=== PATIENT | female | born 1940 | race Caucasian/White ===

== ENCOUNTER 2018-04-25 06:18 | Inpatient (IN) | payer BC ==
[2018-04-11 09:13] LABS: ABSOLUTE EOSINOPHILS 0.3 thou/uL (0.0-0.7); ABSOLUTE LYMPHOCYTES 2.3 thou/uL (0.8-5.3); ABSOLUTE MONOCYTES 0.5 thou/uL (0.0-1.2); BASOPHILS 0.3 %; EOSINOPHILS 4.7 %; HEMATOCRIT 38.9 % (37.0-47.0); HEMOGLOBIN 12.9 gm/dL (12.0-15.0); LYMPHOCYTES 37.9 %; MCHC 33.1 g/dL (28.0-37.0); MCV 87.5 fL (80.0-100.0); MONOCYTES 7.8 %; MPV 7.4 fl. (7.2-11.1); NUCLEATED RBCS 0 /100WBC; PLATELET COUNT* 206 thou/uL (150-400); POLYS 49.3 %; RBC 4.44 mil/uL (4.20-5.00); RDW-CV 13.8 % (10.5-14.5); WBC 6.1 thou/uL (4.0-11.0)
[2018-04-11 09:36] LABS: ALBUMIN 3.4 g/dL (3.4-5.0); CALCIUM 8.8 mg/dL (8.5-10.1); POTASSIUM 4.2 mmol/L (3.5-5.1); TOTAL BILIRUBIN 0.4 mg/dL (<0.1-1.0)
[2018-04-11 09:59] LABS: APTT 29.3 Seconds (25.0-31.3); INR 1.1; PROTIME 10.4 Seconds (9.20-11.50)
[2018-04-11 10:11] LABS: ESR (SEDRATE) 13 mm/hr (0-30)
--- NOTE | 2018-04-11 11:33 | EKG ---
[place] [address] ELECTROCARDIOGRAM REPORT Name: SANGITA CORLEY Room: PRE IN [facility]#: [id number] Admission: Attend Phys: Gloria Awad Discharge: Date of : 44 Report #: [id number] THIS REPORT FOR: //name// [facility] Test Date: 2018-04-11 Test Time: 09:20:38 Pat Name: SANGITA CORLEY Department: Room: Gender: F Director Of Public Works: : 1940 Requested By: Nakul Hogan Order Number: [id number] Reading MD: Epi Brizuela Measurements Intervals [place] Rate: 60 P: 75 VA: 162 QRS: 18 QRSD: 94 T: 26 QT: 389 QTc: 389 Interpretive Statements Sinus rhythm Abnormal R-wave progression, early transition Compared to ECG 12/11/2016 12:42:25 T-wave abnormality no longer present Electronically Signed On 04-11-2018 11:33:01 CDT by Epi Brizuela [email or web address] <ELECTRONICALLY SIGNED> By: Epi Brizuela MD, [facility] 04/11/18 1133 9 9 Epi Brizuela MD, [facility] /EPI
[~2018-04-25] VITALS: Ht 170.2 cm; Wt 63.5 kg
[~2018-04-25 06:18] MED LIST: ALPRAZOLAM 0.0.25 M1; ASPIRIN EC81 M1 PO; HYDROCODONE-AP1 EAC6 PO; LEVOTHYROXIN0.075 MG PO; MACROBID 100 M100 M2 PO; NEURONTIN 300M300 M2 PO; NEURONTIN600 MG PO; NORTRIPTYLINE H25 M3 PO; OXYCODONE HCL 55 MG PO; PROPRANOLOL 1010 MG PO; ROSE HIPS PO; SYNTHROID88 MCG; TRAMADOL 50 MG50 MG PO; VITAMIN B-12100 MC1; VITAMINC500 PO; XANAX 0.5 MG0.5 MG PO; XARELTO10 MG PO; ZESTORETIC 10-1 EACH PO; [UNRECOGNIZED DRUG - REMARK]
[2018-04-25 07:34] VITALS: BP 135/69
[2018-04-25 13:30] VITALS: BP 143/63
[2018-04-25 16:00] VITALS: BP 140/52
--- NOTE | 2018-04-25 17:26 | NUR ---
PATIENT ARRIVED FROM SURGERY THIS AFTERNOON. PATIENT HAD COMPLAINTS OF PAIN UPON ARRIVAL, HYDROCODONE GIVEN WITH ADEQUATE RELIEF. PATIENT HAS GOOD APPETITE THIS EVENING. PATIENT HAS NOT BEEN UP OUT OF BED TODAY. PATIENT HAS HEMOVAC IN PLACE WITH MINIMAL OUTPUT. PATIENT HAS ABDUCTOR IN PLACE. PATIENT DENIES ANY NEEDS AT THIS TIME. CALL LIGHT WITHIN REACH. WILL CONTINUE TO MONITOR.
[2018-04-25 19:40] VITALS: BP 116/56
[2018-04-25 23:44] VITALS: BP 104/58
[2018-04-26] VITALS (8 sets, daily range): BP systolic 92–122; BP diastolic 47–70
--- NOTE | 2018-04-26 04:39 | NUR ---
PATIENT HAS REMAINED ALERT AND ORIENTED X 4 THROUGHOUT THE SHIFT AND RESTING QUIETLY ON HOURLY ROUNDS. BEDREST TONIGHT. HIP PRECAUTIONS IN PLACE. TURNING WITH ASSIST FOR BEDPAN WITH ADEQUATE VOIDS. ORAL FLUIDS WITHOUT NAUSEA. PAIN WELL CONTROLLED WITH ORAL MEDICATION X 2 THIS SHIFT. DRESSING AND DRAIN RIGHT LEG/THIGH/HIP CLEAN AND DRY. O2 AT 2L/MIN OVERNIGHT WITH CONTINUOUS CAPNOGRAPHY. VITAL SIGNS STABLE. CONTINUE TO MONITOR.
[2018-04-26 04:43] LABS: HEMATOCRIT 34.3 % (37.0-47.0); HEMOGLOBIN 11.3 gm/dL (12.0-15.0)
--- NOTE | 2018-04-26 15:08 | NUR ---
MET WITH PT TO DISCUSS HOME SITUATION DC PLANNING. PT LIVES WITH SPOUSE, HE WAS IN ROOM ALSO. PT HAS BEEN INDPEPENDENT AT HOME. HAD KNEE REPLACEMENT LAST YEAR AND HAS WALKER, SHOWER BENCH AND TOILET RISER. SPOUSE CAN ASSIST HER AT HOME. THEY ARE ALSO HAVING A RAMP BUILT. PER MARY, PT DID WELL TODAY, ANTICIPATE DC TOMORROW. PT HAD [facility] IN PAST, WOULD LIKE TO USE AGAIN. CALLED AND FAXED INITIAL REFERRAL TO [facility]. PT USES [facility] FOR [facility]. CM TO FOLLOW [facility] [phone] FAX [phone]
--- NOTE | 2018-04-26 18:48 | NUR ---
PATIENT HAS BEEN A/O X 4 THIS SHIFT. MEDICATED FOR RIGHT HIP PAIN WITH ORAL PAIN MEDS WITH PARTIAL RELIEF. IV FLUIDS SALINE LOCKED THIS SHIFT. PATIENT MAINTAINING 50% WB STATUS TO RIGHT HIP. DRESSING INTACT TO RIGHT HIP, HEMOVAC DRAIN REMOVED BY ORTHO RESIDENT. UP IN CHAIR FOR MOST OF SHIFT WITH LEGS/HEELS ELEVATED. ABDUCTOR WEDGE IN PLACE TO MAINTAIN HIP PRECAUTIONS. TOLERATING DIET AND ORAL FLUIDS. HOURLY ROUNDING COMPLETED. CALL LIGHT WITHIN REACH. WILL CONTINUE WITH PLAN OF CARE.
[2018-04-27 04:15] VITALS: BP 94/40
[2018-04-27 04:39] LABS: HEMATOCRIT 31.2 % (37.0-47.0); HEMOGLOBIN 10.4 gm/dL (12.0-15.0)
--- NOTE | 2018-04-27 06:02 | NUR ---
PT SLEPT MOST OF SHIFT. ASSESSMENT DOCUMENTED. MEDS GIVEN PER E-MAR. IV PATENT. PAIN MEDS GIVEN PER E-MAR WITH RELIEF. PT UP TO BSC THROUGH NIGHT. WILL CONTINUE WITH PLAN OF CARE.
[2018-04-27 06:44] VITALS: BP 110/49
[2018-04-27] MEDS ORDERED: HYDROCODON-ACE1 EAC7 PO (09:03)
[2018-04-27] MEDS ORDERED: OXYCODONE HCL5 M1 PO (09:03)
[2018-04-27] MEDS ORDERED: ELIQUIS5 MG PO (09:03)
--- NOTE | 2018-04-27 10:32 | NUR ---
Pt to dc home today with and HH services to follow. ROSALIA faxed final orders and med list to [facility] and Kristine accepted referral and will receive fax. Pt has walker already. No other dc needs expressed.
[2018-04-27 15:25] VITALS: BP 116/51
[2018-04-27 16:00] VITALS: BP 130/78
[2018-04-27 16:01] VITALS: BP 116/51
--- NOTE | 2018-04-27 17:30 | NUR ---
PATIENT DISCHARGED FROM UNIT AT 1715. ALERT AND ORIENTED X 4. VITAL SIGNS STABLE ON ROOM AIR. AFEBRILE. UP WITH ASSIST OF ONE TO THE BEDSIDE COMODE. TOLERATED PT WELL TODAY AND DID THE STAIRS. IV DISCONTINUED. DISCHARGE INSTRUCTIONS, MEDICATION INFORMATION, AND SCRIPTS GIVEN TO PATIENT. LEFT WITH ALL BELONGINGS. PATIENT LEFT WITH VIA CAR.
[2018-04-27 18:15] VITALS: BP 116/51
--- NOTE | 2018-07-03 08:08 | OP ---
[facility] [address] [place] [address] OPERATIVE REPORT Name: BARNEYSANGITA Padilla Room: [address]#: [id number] Admission: 04/25/18 Attend Phys: Gloria Awad Discharge: 04/27/18 Date of : 44 Report #: [id number] THIS REPORT FOR: //name// CC: Nakul Darby DICTATED BY: Steven Vidal DO DATE OF SERVICE: 04/25/2018 PREOPERATIVE DIAGNOSIS: Right hip degenerative joint disease. POSTOPERATIVE DIAGNOSIS: Right hip degenerative joint disease. PROCEDURE: Right total hip arthroplasty utilizing the following components: 1. MicroPort Prime Biofoam acetabular shell 54 mm diameter. 2. MicroPort 36 mm lipped acetabular polyethylene liner. 3. Size 1 varus MicroPort Profemur femoral stem. 4. MicroPort BIOLOX 36 mm femoral head with a medium neck length. 5. Two 6.5 x 35 mm cancellous bone screws for the acetabular shell. SURGEON: Nakul Hogan DO. ARTIST WOODBLOCK: Steven Vidal DO and ESTIMATED BLOOD LOSS: 250 mL. ANESTHESIA: General. ANTIBIOTICS: 2 grams Ancef IV preoperatively. DRAINS: Medium Hemovac to right hip subcutaneous tissues. SPECIMENS: None. COMPLICATIONS: None. DISPOSITION: Stable to PACU and will be admitted to the hospital for standard postoperative care. INDICATION FOR PROCEDURE: The patient is a pleasant 78-year-old female who is seen in Orthopedic Clinic with complaints of chronic right hip pain referred to the groin region, worse with prolonged weightbearing, was greatly impacting her quality of life and preventing her from performing activities that she wishes to. Radiographs displayed advanced degenerative joint disease to the right hip. [address] [address] OPERATIVE REPORT Name: BARNEYSANGITA E Room: [address]#: [id number] Admission: 04/25/18 Attend Phys: Gloria Awad Discharge: 04/27/18 Date of : 44 Report #: [id number] Pain was refractory to conservative measures. Therefore, recommendation was made for proceeding with a right total hip arthroplasty. Risks, benefits, complications, indications, alternative treatments were discussed, and the patient wished to proceed with surgery today. DESCRIPTION OF PROCEDURE: The patient was seen in preoperative holding area. Correct operative site, right hip was initialed. The patient was taken back to the operating suite, placed in supine position on the operating table, given benefit of general anesthetic and then was placed in the left lateral decubitus position with right hip exposed. The patient's torso was secured using the standard pegboard pegs and all bony prominences were well padded. The right hip was then prepped and draped in typical fashion. Next, surgery began with a timeout, identifying correct patient, correct procedure, correct operative site, preoperative antibiotics and correct performing surgeon. Next, standard curvilinear incision was made directly over the greater trochanter, curving posteriorly, proximally and curving down the anterior portion of the femoral shaft distally. Skin was incised with a 10 blade scalpel. Subcutaneous tissues were sharply dissected down to the level of the iliotibial band/fascia brent. This was then incised in line with the skin incision. Charnley retractor was placed. The anterior third of her gluteus medius tendon was peeled directly off the greater trochanter in a normal fashion using electrocautery, noticing a significant interval between gluteus medius and capsule. Next, a standard H capsulotomy was performed using electrocautery. Hip was then dislocated. Posterior medial release of the capsule was then performed until the lesser trochanter was palpable. We made our neck cut roughly one fingerbreadth superior to the lesser trochanter in the normal fashion using oscillating saw. Next, standard retractors were placed surrounding the acetabulum. The cotyloid fossa was debrided off ligamentum debris. The acetabular edge was debrided off the labrum using electrocautery. Next, sequential reaming was performed up to a size 54 mm reamer, which seemed to be appropriately sized with good bleeding cancellous bone and good spherical fit to the la posta acetabulum. Next, a trial acetabular shell was placed, it seemed to be completely seated. Next, the final 54 mm acetabular shell was impacted into place in the normal anteversion and lateral inclination roughly 45 degrees and 15 degrees of anteversion. Next, the polyethylene spacer was impacted in the normal fashion with the lip facing superior direction. Next, retractors were repositioned in a normal fashion to prepare for broaching of the femur. First, box osteotome was utilized, followed by the canal finder, followed by the lateralizer. Next, broaching started in sequential fashion starting with the size zero entry broach, getting up to a size 1 femoral stem broach, which actually seemed to have a very good fit in the canal and with shoulder down appropriately. We trialled with a standard neck length, and this was felt to be very stable, especially with tested maneuvers of hip flexion, external and both internal rotation with no signs of levering or dislocation. Intraoperative x-rays were taken that seemed to be appropriate placement of our acetabular shell, appropriate leg length as well as appropriate stem size. Trial components [facility] [address] [place] [address] OPERATIVE REPORT Name: SANGITA CORLEY Room: [address] [place] M.R.#: [id number] Admission: 04/25/18 Attend Phys: Gloria Awad Discharge: 04/27/18 Date of : 44 Report #: [id number] consisting of the head and neck and femoral stem were removed at this time. Final femoral stem was impacted into place in normal fashion. A final head was also impacted onto the stem in the normal fashion. The hip was then reduced and again taken through range of motion and felt to be stable in all planes. Wound was thoroughly irrigated. TXA was allowed to set in the wound for a normal amount of time. Capsule was closed in a tghehj-oq-saqij fashion using #1 Vicryl suture. Gluteus medius tendon was reattached to the greater trochanter using #5 TiCron suture with intraosseous tunnels created by the cutting needle in a sxckfa-tn-gfttd fashion, followed by a running #1 Vicryl suture along the tendon a soft tissue portion of the gluteus medius. Iliotibial band/fascia brent was closed in a jzvlbe-mc-uzegt fashion using #1 Vicryl suture. Deep subcutaneous tissue layer was closed in a simple running fashion with 2-0 Vicryl suture after placing the drain in subcutaneous fashion. Subcutaneous more superficial layer was closed in a simple inverted interrupted fashion with 2-0 Vicryl suture, followed by a running subcuticular stitch consisting of 3-0 Stratafix and skin glue. Standard dressings were applied consisting of Mepilex, drain sponge and Tegaderm around the drain. The patient was weaned from general anesthetic, transferred in stable condition to PACU. Abduction pillow was applied in the normal fashion. All sponge, needle counts were correct x 2. <ELECTRONICALLY SIGNED> By: Audi Snow DO 07/03/18 0808 1311 [id number] Hogan DO /osman
== END 2018-04-27 17:15 | disposition home health service (06) | DRG 470 ==
LOC: M.PRE 06:18 → M.SUR 06:49 → EDSTATUS 06:50 → M.ORTHSURG 07:07 → M.TBA 07:07 → M.PRE 07:17 → M.ORTHSURG 13:34 → M.PRE 13:49 → M.ORTHSURG 04-27 17:15
PROVIDERS: Orthopaedic Surgery; ADMIT Internal Medicine
PROC: 0SR902Z Replacement of Right Hip Joint with Metal on Polyethylene Synthetic Substitute, Open Approach (ICD-10-PCS; principal; 2018-04-25)
DX: M16.11 Unilateral primary osteoarthritis, right hip (principal); I10 Essential (primary) hypertension; E03.9 Hypothyroidism, unspecified; G62.9 Polyneuropathy, unspecified; Z96.652 Presence of left artificial knee joint; Z79.82 Long term (current) use of aspirin; Z79.899 Other long term (current) drug therapy; Z90.710 Acquired absence of both cervix and uterus

== ENCOUNTER → 2018-12-03 | Outpatient (CLI) | payer BC ==
[~2018-12-03] MED LIST changes: +ELIQUIS5 MG PO; +HYDROCODON-ACE1 EAC7 PO; +OXYCODONE HCL5 M1 PO
== END ==
LOC: M.RAD 11-28 11:00 → M.MRI 11-28 11:30
DX: S63.591A Other specified sprain of right wrist, initial encounter (principal); M19.031 Primary osteoarthritis, right wrist; M85.89 Other specified disorders of bone density and structure, multiple sites; X58.XXXA Exposure to other specified factors, initial encounter; Y93.89 Activity, other specified; Y92.89 Other specified places as the place of occurrence of the external cause; Y99.8 Other external cause status; Z78.0 Asymptomatic menopausal state

== ENCOUNTER → 2019-05-05 | Outpatient (CLI) | payer BC | LOC: M.RAD 14:41 | DX: Z12.31 Encounter for screening mammogram for malignant neoplasm of breast (principal) ==

== ENCOUNTER → 2020-08-10 | Outpatient (CLI) | payer BC | LOC: M.ULTRA 11:30 | PROVIDERS: ATTEND Nurse Practitioner | DX: I65.23 Occlusion and stenosis of bilateral carotid arteries (principal) ==

== ENCOUNTER → 2020-09-23 | Outpatient (CLI) | payer BC | LOC: M.CT 11:25 | PROVIDERS: ATTEND Family Medicine | DX: K76.0 Fatty (change of) liver, not elsewhere classified (principal); K80.20 Calculus of gallbladder without cholecystitis without obstruction; N28.89 Other specified disorders of kidney and ureter ==

== ENCOUNTER 2020-11-28 13:08 | Observation (INO) | payer BC ==
[~2020-11-28] VITALS: Ht 167.6 cm; Wt 68.0 kg
--- NOTE | ~2020-11-28 | CON ---
[address] [address] CONSULTATION Name: SANGITA CORLEY Room: [address] [place] M.R.#: [id number] Admission: 11/28/20 Attend Phys: Darren Fowler MD Discharge: 11/29/20 Date of : 44 Report #: [id number] THIS REPORT FOR: cc: Soumya Laird Linda J. DO ~ Josh Haywood MD DATE OF SERVICE: 11/29/2020 HISTORY OF PRESENT ILLNESS: This is a 80-year-old female patient who was evaluated by me for visual symptoms. I reviewed the patient's records and they had indicated that this patient's symptoms were present for a few days when she woke up. She had no symptoms when she woke up today, but when further history is taken, it very clear that she said she had these symptoms in May of last year and in fact has symptoms few years even prior to that. She sees wavy lines in front of her eyes, which lasts typically few minutes, but yesterday it lasted longer than before. She saw an eye doctor, but she does not know whether it was an sports equipment supervisor or special investigation unit investigator. They thought she may have had a transient ischemic attack. She said she had a workup, but I do not know what workup it was. She was asymptomatic when I saw her, she has no headaches following it. REVIEW OF SYSTEMS: Indicate that this patient had these episodes. She already had a CT scan of the head and a carotid Doppler and that was unremarkable. A 14-point review of system was mostly unremarkable. PAST MEDICAL HISTORY: Positive for these spells. FAMILY HISTORY: Negative for any early age stroke. SOCIAL HISTORY: She says she does not smoke or drink alcohol. PHYSICAL EXAMINATION: Indicate that she is alert, responsive. Her higher function is at her baseline. Cranial nerve examination 2-12 was mostly unremarkable. I could not look at the fundus very well. Strength, sensation, reflexes and tone was symmetrical. There is no meningeal sign in this patient. There is no cerebellar sign, no carotid bruit. Cardiorespiratory examination is unremarkable. Pulses are palpable. Cardiac examination is unremarkable. Respiratory examination is unremarkable. She has no edema. Her vision and hearing is intact. There is no thyroid mass. Blood pressure is 132/62, respiration is 16, pulse is 63, temperature is 99.3. LABORATORY DATA: Indicate a white count of 7.0. Sodium is normal. Her sed rate is also normal. CT and carotid Doppler is described as above. I went back and looked at her records in the computer. In [place], [place] [address] CONSULTATION Name: SANGITA CORLEY Room: [address] [place]#: [id number] Admission: 11/28/20 Attend Phys: Darren Fowler MD Discharge: 11/29/20 Date of : 44 Report #: [id number] patient in 2010. At that time, she also had presented with visual problems. We had considered the possibility of migraine. IMPRESSION: This patient's symptoms are not typical for transient ischemic attack. Her symptoms are going on for few years. Her carotid Doppler is unremarkable. She is on aspirin and she should continue aspirin. She needs MRI of the brain and MRA of the head to complete the workup, but she really wants to go home. MRI and MRA has to be approved by [employer] and that take some time and she wants to do it as an outpatient and that is okay with me since the symptoms are going on for a long time, as mentioned above. I did pull out my records from 2010 and she was having eye symptoms at that time. I talked to the nurses and I told them to arrange an MRI of the brain and MRA of the head as an outpatient as soon as it can be done and the patient should call my office to discuss that further. She should try to get her LDL down and work with the family doctor and can be on statin. History is not very clear and her LDL is less than 100, but that can be considered if she wants to go on that. I had a long discussion with the patient and discussed with all of it in detail. By: [id number] Haywood MD /nt
[2020-11-28 13:16] VITALS: BP 151/56
[2020-11-28 13:33] LABS: ABSOLUTE EOSINOPHILS 0.2 thou/uL (0.0-0.7); ABSOLUTE LYMPHOCYTES 2.3 thou/uL (0.8-5.3); ABSOLUTE MONOCYTES 0.6 thou/uL (0.0-1.2); ABSOLUTE NEUTROPHILS 3.9 thou/uL (1.6-8.1); BASOPHILS 0.2 %; EOSINOPHILS 3.3 %; HEMATOCRIT 40.2 % (37.0-47.0); HEMOGLOBIN 13.2 gm/dL (12.0-15.0); LYMPHOCYTES 32.2 %; MCHC 32.9 g/dL (28.0-37.0); MCV 87.9 fL (80.0-100.0); MONOCYTES 8.9 %; NUCLEATED RBCS 0 /100WBC; PLATELET COUNT* 220 thou/uL (150-400); POLYS 55.4 %; RBC 4.57 mil/uL (4.20-5.00); RDW-CV 13.6 % (10.5-14.5)
[2020-11-28 13:41] LABS: CALCIUM 8.5 mg/dL (8.5-10.1); CREATININE 1.1 mg/dL (0.6-1.3); POTASSIUM 4.2 mmol/L (3.5-5.1)
[2020-11-28 13:44] LABS: APTT 27.1 Seconds (25.0-31.3); PROTIME 10.3 Seconds (9.20-11.50)
[2020-11-28 13:45] LABS: ALBUMIN 3.7 g/dL (3.4-5.0); TOTAL BILIRUBIN 0.3 mg/dL (<0.1-1.0); TOTAL PROTEIN 7.5 g/dL (6.4-8.2)
[2020-11-28 16:38] VITALS: BP 140/60
[2020-11-28 16:54] VITALS: BP 137/46
[2020-11-28] MEDS ORDERED: ALPRAZOLAM XR3 MG PO (17:19)
[2020-11-28] MEDS ORDERED: NEURONTIN600 MG PO (17:19)
--- NOTE | 2020-11-28 18:39 | NUR ---
PT ADMITTED TO UNIT, ASSESSED, NOTES REVIEWED. NEGATIVE NEURO ASSESSMENT, NIH-0. DENIES BLURRED VISION AT THIS TIME. VSS. ADMISSION TASKS COMPLETED, MED REC UPDATED. PT STATES THERE IS ONE MORE HOME MEDICATION SHE DOES NOT REMEMBER.
[2020-11-29] VITALS: BP 153/59
[2020-11-29 04:00] VITALS: BP 108/48
[2020-11-29 06:02] LABS: CHOLESTEROL 140 mg/dL (<200); HDL CHOLESTEROL 33 mg/dL (>40); LDL CHOLESTEROL 91 mg/dL (<100); TC:HDL 4.2 Ratio (Not establshd); TRIGLYCERIDE 80 mg/dL (<150); VLDL 16 mg/dL (<40)
[2020-11-29 06:13] LABS: SERUM ASSESSMENT Clear
[2020-11-29 07:45] VITALS: BP 119/57
--- NOTE | 2020-11-29 09:38 | NUR ---
CM SPOKE TO THE PT TO DISCUSS CM ASSESSMENT. PT A&O, NORMALLY INDEPENENT WITH ADL'S, ACTIVE AND DRIVES. PT RESIDES AT HOME WITH SPOUSE. PT USES 0 DME. PT HAS PAST HX OF HH AFTER KNEE/HIP SX, BUT COULD NOT RECALL THE NAME. PT HAS 0 HX OF SNF. CM WILL REMAIN AVAILABLE TO ASSIST AND FOLLOW NEEDED.
--- NOTE | 2020-11-29 11:09 | NUR ---
ASSUMED CARE OF PATIENT AFTER REPORT FROM NIGHT NURSE @ 0730 LABS AND EMAR REVIEWED. PATIENT ASSESSED AND MEDS GIVEN PER EMAR. PATIENT DENIES PAIN OR DISCOMFORT THIS AM. PATIENT IS PLANNING FOR DISCHARGE AFTER A NEURO CONSULT TODAY. WILL CONTINUE TO MONITOR.
--- NOTE | 2020-11-29 11:10 | EKG ---
[place] [address] ELECTROCARDIOGRAM REPORT Name: SANGITA CORLEY Room: [address] M.R.#: [id number] Admission: 11/28/20 Attend Phys: Darren Fowler, Discharge: Date of : 44 Date of Service: 11/28/20 1328 Report #: [id number] THIS REPORT FOR: //name// [facility] ED Test Date: 2020-11-28 Test Time: 13:28:38 Pat Name: SANGITA CORLEY Department: Room: [facility] Gender: F Belting And Webbing Inspector: REGINA : 1940 Requested By: Jordy Llamas Order Number: [id number] MD: Shay Pedro Measurements Intervals [place] Rate: 54 P: 58 [place]: 171 QRS: 15 QRSD: 115 T: 33 QT: 429 QTc: 407 Interpretive Statements Sinus bradycardia Nonspecific intraventricular conduction delay Low voltage, precordial leads Borderline T abnormalities, anterior leads Compared to ECG 04/11/2018 09:20:38 rate has slowed Electronically Signed On 11-29-2020 11:10:41 COMMERCIAL TRUCK DRIVER by Shay Pedro [email or web address] <ELECTRONICALLY SIGNED> By: Shay Pedro MD, [facility] 11/29/20 1110 1328 1328 Shay Pedro MD, FAC /EPI
[2020-11-29 11:40] VITALS: BP 132/62
--- NOTE | 2020-11-29 12:27 | 2DMMODE ---
[place] [address] 2 D/M-MODE ECHOCARDIOGRAM Name: SANGITA CORLEY Room: [address] Ba#: [id number] Admission: 11/28/20 Attend Phys: Darren Fowler, Discharge: Date of : 44 Date of Service: 11/29/20 1227 Report #: [id number] THIS REPORT FOR: cc: Soumya Laird,Soumya Marin,Shay Estrada MD [facility] ~ APPROVED REPORT Study performed: 11/29/2020 10:58:10 EXAM: Comprehensive 2D, Doppler, and color-flow Echocardiogram Patient Location: In-Patient Room #: [facility] Status: routine BSA: 1.72 HR: 66 bpm BP: 119/57 mmHg Rhythm: NSR Other Information Study Quality: Good Indications CVA/TIA Echo Enhancing Agent Indication: Rule out Shunt Agent(s) / Amount(s) Used: Agitated Saline 10 cc 2D Dimensions IVSd: 8.49 (7-11mm) LVOT Diam: 16.95 (18-24mm) LVDd: 42.27 mm PWd: 7.96 (7-11mm) Ascending Ao: 34.37 (22-36mm) LVDs: 22.33 (25-40mm) Aortic Root: 28.86 mm Volumes Left Atrial Volume (Systole) LA ESV Index: 20.70 mL/m2 Aortic Valve AoV Peak Timothy.: 1.25 m/s AO Peak Gr.: 6.22 mmHg LVOT Max P.60 mmHg AO Mean Gr.: 2.92 mmHg LVOT Mean P.30 [place] [address] 2 D/M-MODE ECHOCARDIOGRAM Name: SANGITA CORLEYN Room: [address] M.R.#: [id number] Admission: 11/28/20 Attend Phys: Darren Fowler, Discharge: Date of : 44 Date of Service: 11/29/20 1227 Report #: [id number] LVOT Max V: 1.07 m/s AO V2 VTI: 26.09 cm LVOT Mean V: 0.70 m/s MICHELE (VTI): 2.03 cm2 LVOT V1 VTI: 23.44 cm AI Lanier: 2.46 m/s2 AI PHT: 478.75 ms Mitral Valve E/A Ratio: 1.05 MV Decel. Time: 178.19 ms MV E Max Timothy.: 0.69 m/s MV PHT: 51.67 ms MVA (PHT): 4.26 cm2 TDI E/Lateral E': 5.31 E/Medial E': 5.75 Medial E' Timothy.: 0.12 m/s Lateral E' Timothy.: 0.13 m/s Pulmonary Valve PV Peak Timothy.: 0.84 m/s PV Peak Gr.: 2.82 mmHg Tricuspid Valve RAP Estimate: 5.00 mmHg TR Peak Gr.: 23.16 mmHg RVSP: 28.00 mmHg PA Pressure: 28.00 mmHg Left Ventricle The left ventricle is normal size. There is normal LV segmental wall motion. There is normal left ventricular wall thickness. Left ventricular systolic function is normal. The left ventricular ejection fraction is within the normal range. LVEF is 55-60%. The left ventricular diastolic function is normal. Right Ventricle The right ventricle is normal size. The right ventricular systolic function is normal. Atria The left atrium size is normal. The interatrial septum is intact with no evidence for an atrial septal defect. The right atrium size is normal. Aortic Valve The aortic valve is normal in structure. Mild aortic regurgitation. There is no [place] [address] 2 D/M-MODE ECHOCARDIOGRAM Name: SANGITA CORLEY Room: [address] M.R.#: [id number] Admission: 11/28/20 Attend Phys: Darren Fowler, Discharge: Date of : 44 Date of Service: 11/29/20 1227 Report #: [id number] Mitral Valve The mitral valve is normal in structure. Mild mitral regurgitation. No evidence of mitral valve stenosis. Tricuspid Valve The tricuspid valve is normal in structure. Mild tricuspid regurgitation. No pulmonary hypertension. Pulmonic Valve The pulmonary valve is normal in structure. Trace pulmonic regurgitation. Great Vessels The aortic root is normal in size. IVC is not well visualized. Pericardium There is no pericardial effusion. <Conclusion> LVEF is 55-60%. Mild aortic regurgitation. Mild mitral regurgitation. The interatrial septum is intact with no evidence for an atrial septal defect. <ELECTRONICALLY SIGNED> By: Shay Pedro MD, FACC 11/29/20 1227 122 122 Shay Pedro MD, FACC /INF
[2020-11-29 13:47] VITALS: BP 132/62
[2020-11-29 13:51] VITALS: BP 132/62
--- NOTE | 2020-11-29 14:06 | NUR ---
SPOKE WITH DR SIMENTAL FOR DISCHARGE. PT SHOULD FOLLOW UP OUTPATIENT WITH EYE DOCTOR AND COMPLETE MRI/MRA HEAD WITHOUT CONTRAST OUTPATIENT. ORDER FOR MRI/MRA FAXED TO MRI AND SCHEDULING.
--- NOTE | 2020-11-29 14:44 | NUR ---
DISCHARGE ORDERS RECEIVED AND REVIEWED WITH PATIENT WHO VERBALIZED UNDERSTANDING. PATIENT'S AT BEDSIDE AND EDUCATION REGARDING FOLLOW UP APPOINTMENTS REVIEWED WITH BOTH. IV AND CASTER HELPER DISCONTINUED. BELONGINGS WITH PATIENT. PATIENT IN WHEELCHAIR AND ESCORTED TO FRONT DRIVE WHERE WAS WAITING WITH CAR. ASSISTED PATIENT TO CAR, SEATBELT ON.
[2020-11-30 02:06] LABS: GLYCOHEMOGLOBIN (HGB A1C) 5.6 % (4.8-5.6)
== END 2020-11-29 15:56 | disposition home or self-care (01) ==
LOC: M.ERS 13:08 → M.2W 14:25 → M.TBA-ER 14:25 → M.2W 16:45
PROVIDERS: Family Medicine; ADMIT Internal Medicine; ATTEND Internal Medicine
DX: G45.9 Transient cerebral ischemic attack, unspecified (principal); I10 Essential (primary) hypertension; E03.9 Hypothyroidism, unspecified; G43.B0 Ophthalmoplegic migraine, not intractable; Z20.828 Contact with and (suspected) exposure to other viral communicable diseases

== ENCOUNTER → 2020-12-06 | Outpatient (CLI) | payer BC ==
[~2020-12-06] MED LIST changes: +ALPRAZOLAM XR3 MG PO
== END ==
LOC: M.MRI 13:49
PROVIDERS: ATTEND Psychiatry & Neurology Neuromuscular Medicine
DX: G45.9 Transient cerebral ischemic attack, unspecified (principal); H53.9 Unspecified visual disturbance; Z98.890 Other specified postprocedural states

== ENCOUNTER 2021-02-10 17:56 | Inpatient (IN) | payer BC ==
[~2021-02-10] VITALS: Ht 167.6 cm; Wt 68.2 kg
[2021-02-10 17:59] VITALS: BP 111/45
[2021-02-10 18:21] LABS: HEMATOCRIT 35.8 % (37.0-47.0); HEMOGLOBIN 11.9 gm/dL (12.0-15.0); MCHC 33.2 g/dL (28.0-37.0); MCV 87.4 fL (80.0-100.0); NUCLEATED RBCS 0 /100WBC; PLATELET COUNT* 157 thou/uL (150-400); RDW-CV 13.7 % (10.5-14.5)
[2021-02-10 18:27] LABS: CALCIUM 8.3 mg/dL (8.5-10.1); CREATININE 1.4 mg/dL (0.6-1.3); POTASSIUM 3.7 mmol/L (3.5-5.1)
[2021-02-10 18:31] LABS: APTT 28.7 Seconds (25.0-31.3); INR 1.1
[2021-02-10 18:32] LABS: URINE BILIRUBIN NEGATIVE (Negative); URINE BLOOD 2+ (Negative); URINE COLOR YELLOW; URINE GLUCOSE-RANDOM NEGATIVE (Negative); URINE KETONES NEGATIVE (Negative); URINE NITRITE-REFLEX NEGATIVE (Negative); URINE PROTEIN 1+ (Negative); URINE UROBILINOGEN 0.2 E.U./dl (0.2-1.0)
[2021-02-10 18:34] LABS: URINE CLARITY SL HAZY; URINE LEUKOCYTES-REFLEX 3+ (Negative)
[2021-02-10 18:39] LABS: URINE RBC 3-10 Few /HPF (0-2); URINE WBC-REFLEX >25 Many /HPF (0-5); WBC CLUMPS Few (None Seen)
[2021-02-10 18:40] LABS: BACTERIA-REFLEX 1-9 Few /HPF (None Seen); CASTS None Seen /LPF (None Seen); CRYSTALS None Seen /LPF (None Seen); MUCUS None Seen strn/LPF (None Seen); SQUAMOUS 0-3 Few /LPF (0-3)
[2021-02-10 18:41] LABS: TOTAL BILIRUBIN 0.7 mg/dL (<0.1-1.0); TOTAL PROTEIN 6.8 g/dL (6.4-8.2)
[2021-02-10 18:53] LABS: ABSOLUTE LYMPHOCYTES 1.4 thou/uL (0.8-5.3); ABSOLUTE MONOCYTES 0.2 thou/uL (0.0-1.2); ABSOLUTE NEUTROPHILS 8.4 thou/uL (1.6-8.1)
[2021-02-10 18:54] LABS: PLATELET ESTIMATE ADEQUATE
[2021-02-10 23:00] VITALS: BP 110/48
[2021-02-11 03:57] VITALS: BP 106/58
[2021-02-11 08:00] VITALS: BP 113/50; BP 124/70
[2021-02-11 08:30] VITALS: BP 105/45
--- NOTE | 2021-02-11 11:02 | EKG ---
[place] [address] ELECTROCARDIOGRAM REPORT Name: SANGITA CORLEYN Room: [address] [place]M [place] M.R.#: [id number] Admission: 02/10/21 Attend Phys: Dewey Darby Discharge: Date of : 44 Date of Service: 02/10/21 185 Report #: [id number] THIS REPORT FOR: //name// [facility] ED Test Date: 2021-02-10 Test Time: 18:51:39 Pat Name: SANGITA CORLEY Department: Room: [facility] Gender: F Tool Specialist: PAMELA : 1940 Requested By: Luis Domínguez Order Number: [id number] MD: Shay Pedro Measurements Intervals [place] Rate: 86 P: 75 VA: 140 QRS: 7 QRSD: 106 T: 36 QT: 353 QTc: 423 Interpretive Statements Sinus rhythm Abnormal R-wave progression, early transition Minimal ST depression, anterolateral leads Compared to ECG 11/28/2020 13:28:38 ST (T wave) deviation now present Sinus bradycardia no longer present Electronically Signed On 02-11-2021 11:02:29 CDT by Shay Pedro [email or web address] <ELECTRONICALLY SIGNED> By: Shay Pedro MD, FACC 02/11/21 1102 50 50 Shay Pedro MD, [facility] /EPI
--- NOTE | 2021-02-11 14:21 | NUR ---
Pt is A&O. Resides at home with . NOrmally independent. No DME. Hx of HH, no skilled. Goal is home at wa. IVABX, follow cultures. Pt/OT
[2021-02-11 20:00] VITALS: BP 122/54
[2021-02-12] VITALS: BP 135/64
[2021-02-12 04:43] VITALS: BP 144/61
[2021-02-12 04:44] LABS: CALCIUM 8.2 mg/dL (8.5-10.1); CREATININE 1.2 mg/dL (0.6-1.3); POTASSIUM 3.9 mmol/L (3.5-5.1)
[2021-02-12 04:49] LABS: HEMATOCRIT 32.7 % (37.0-47.0); HEMOGLOBIN 10.8 gm/dL (12.0-15.0); MCH 29.1 pg (26.0-34.0); MCHC 33.1 g/dL (28.0-37.0); MCV 88.1 fL (80.0-100.0); MPV 7.5 fl. (7.2-11.1); RBC 3.71 mil/uL (4.20-5.00); RDW-CV 13.4 % (10.5-14.5); WBC 11.2 thou/uL (4.0-11.0)
--- NOTE | 2021-02-12 05:22 | NUR ---
ASSUMED PT CARE AT APPROX 1930. PT IS AWAKE AND ORIENTED X4. PT IS NOT IN DISTRESS, NO DESATURATIONS NOTED ON ROOM AIR. PT IS TRACING SR/ST ON THE CLINIC OFFICE MANAGER. NO ACUTE CHANGES THIS SHIFT. CALL LIGHT WITHIN REACH. HOURLY ROUNDING DONE FOR PT SAFETY. FALL PRECAUTIONS IN PLACE.
[2021-02-12 08:00] VITALS: BP 148/65
[2021-02-12 12:00] VITALS: BP 131/61
[2021-02-12 16:00] VITALS: BP 150/65
[2021-02-12 20:00] VITALS: BP 131/71
[2021-02-13] VITALS: BP 107/65
--- NOTE | 2021-02-13 03:53 | NUR ---
ASSUMED PT CARE AT APPROX 1930. PT IS AWAKE AND ORIENTED X4. PT IS TRACING SR ON THE TRAUMA THERAPIST. PT IS NOT IN DISTRESS, NO DESATURATIONS NOTED ON ROOM AIR. PT IS ABLE TO REST MOST OF THE NIGHT. NO ACUTE CHANGES THROUGHOUT THIS SHIFT. CALL LIGHT WITHIN REACH. HOURLY ROUNDING DONE FOR PT SAFETY. FALL PRECAUTIONS IN PLACE.
[2021-02-13 03:56] LABS: MCH 28.9 pg (26.0-34.0); MCHC 33.3 g/dL (28.0-37.0); MCV 86.6 fL (80.0-100.0); MPV 7.2 fl. (7.2-11.1); RBC 3.81 mil/uL (4.20-5.00); RDW-CV 13.3 % (10.5-14.5); WBC 7.8 thou/uL (4.0-11.0)
[2021-02-13 04:00] VITALS: BP 118/60
[2021-02-13 04:15] LABS: CALCIUM 8.8 mg/dL (8.5-10.1); CREATININE 1.1 mg/dL (0.6-1.3); POTASSIUM 3.9 mmol/L (3.5-5.1)
[2021-02-13] MEDS ORDERED: CEFDINIR300 MG PO (07:01)
[2021-02-13 08:00] VITALS: BP 109/51
[2021-02-13 12:52] VITALS: BP 109/51
== END 2021-02-13 14:40 | disposition home or self-care (01) | DRG 689 ==
LOC: M.ERS 17:56 → M.TBA-ER 19:01 → M.2W 19:01 → M.TBA-ER 02-11 04:40 → M.2W 02-11 08:47
PROVIDERS: Emergency Medicine Emergency Medical Services; Family Medicine; ADMIT Internal Medicine; ATTEND Internal Medicine
DX: N39.0 Urinary tract infection, site not specified (principal); N17.0 Acute kidney failure with tubular necrosis; E03.9 Hypothyroidism, unspecified; I10 Essential (primary) hypertension; G43.909 Migraine, unspecified, not intractable, without status migrainosus; Z20.822 Contact with and (suspected) exposure to COVID-19; Z96.652 Presence of left artificial knee joint; Z79.82 Long term (current) use of aspirin; Z79.899 Other long term (current) drug therapy; Z86.73 Personal history of transient ischemic attack (TIA), and cerebral infarction without residual deficits; Z90.710 Acquired absence of both cervix and uterus

== ENCOUNTER → 2021-11-30 | Outpatient (CLI) | payer BC ==
[~2021-11-30] MED LIST changes: +CEFDINIR300 MG PO
== END ==
LOC: M.CT 10:31
PROVIDERS: ATTEND Family Medicine
DX: K76.0 Fatty (change of) liver, not elsewhere classified (principal); K80.20 Calculus of gallbladder without cholecystitis without obstruction; N28.1 Cyst of kidney, acquired; M51.36 Other intervertebral disc degeneration, lumbar region; M41.86 Other forms of scoliosis, lumbar region